=== PATIENT | male | born 1980 | race Two or more races ===

== ENCOUNTER 2020-09-01 03:42 | Inpatient (IN) | payer OTHER ==
[2020-09-01 04:07] VITALS: BMI 22.1
[2020-09-01] MEDS ORDERED: ACETAMINOPHEN 325 MG TABLET (FP) PO PRN ×2 (05:47)
[2020-09-01] MEDS ORDERED: IBUPROFEN 400 MG TABLET (FP) PO PRN (05:47)
[2020-09-01] MEDS ORDERED: MAGNESIUM CITRATE 300 ML BOTTLE PO PRN (05:47)
[2020-09-01] MEDS ORDERED: METHOCARBAMOL 500 MG TABLET PO PRN (05:47)
[2020-09-01] MEDS ORDERED: BISMUTH SUBSALICYLATE 524 MG/30 ML PO PRN (05:47)
[2020-09-01] MEDS ORDERED: MAGNESIUM HYDROX 2400MG/30ML ORAL SUSPENSION 30 ML CUP PO PRN (05:47)
[2020-09-01] MEDS ORDERED: ONDANSETRON *ODT* 4 MG TABLET SL PRN (05:47)
[2020-09-01] MEDS ORDERED: MAG HYDROX/AL HYDROX/SIMETH 30 ML UNIT-DOSE CUP PO PRN (05:47)
[2020-09-01] MEDS ORDERED: MENTHOL/PHENOL 1 EACH UD MM PRN (05:47)
[2020-09-01] MEDS ORDERED: diazePAM 5 MG TABLET PO PRN (05:51)
[2020-09-01] MEDS: diazePAM 5 MG TABLET PO SCH ×2 (06:58→10:34)
[2020-09-01] MEDS ORDERED: LORazepam 1 MG TABLET PO PRN (10:39)
[2020-09-01] MEDS: PRENATAL VITAMINS W/ FOLIC ACID TABLET (FP) PO SCH (10:58)
[2020-09-01] MEDS: LORazepam 2 MG TABLET PO SCH ×3 (10:58→22:30)
[2020-09-01] MEDS: PANTOPRAZOLE 20 MG TABLET PO SCH (17:58)
[2020-09-01] MEDS ORDERED: THIAMINE HCL 100 MG TABLET (FP) PO SCH (22:00)
[2020-09-01] MEDS ORDERED: MELATONIN 5 MG TABLETS PO SCH (22:00)
[2020-09-02] MEDS ORDERED: diazePAM 5 MG TABLET PO SCH (06:00)
[2020-09-02] MEDS: LORazepam 2 MG TABLET PO SCH ×2 (06:04→10:23)
[2020-09-02 09:26] VITALS: BP 101/53; PULSE 108; TEMP 96.1
[2020-09-02 10:06] LABS: HEMOGLOBIN 15.5 GM/dL (11.7-16.9); MCH 30.8 pg (25.7-33.7); MCHC 32.9 g/dl (32.0-35.9); MEAN CELL VOLUME 93.6 fl (80-96); MEAN PLT VOLUME 8.9 fl (7.5-11.1); PLATELET COUNT 189 10^3/uL (134-434); RBC 5.02 M/mm3 (4.00-5.60); RDW 14.5 % (11.9-15.9); WHITE BLOOD COUNT 3.4 K/mm3 (4.0-10.0)
[2020-09-02 10:12] LABS: ALBUMIN 3.9 g/dl (3.4-5.0); BLOOD UREA NITROGEN 9.6 mg/dL (7-18); CALCIUM 9.3 mg/dL (8.5-10.1)
[2020-09-02 10:14] LABS: CREATININE 0.9 mg/dL (0.55-1.3)
[2020-09-02 10:17] LABS: BILIRUBIN,TOTAL 1.2 mg/dL (0.2-1); TOT PROT 7.4 g/dl (6.4-8.2)
[2020-09-02] MEDS: PRENATAL VITAMINS W/ FOLIC ACID TABLET (FP) PO SCH (10:22)
[2020-09-02] MEDS: PANTOPRAZOLE 20 MG TABLET PO SCH (10:23)
[2020-09-02 18:47] LABS: HIV INTERPRETATION NEGATIVE (NEGATIVE)
[2020-09-03] MEDS ORDERED: LORazepam 1 MG TABLET PO SCH (05:00)
[2020-09-03] MEDS ORDERED: diazePAM 5 MG TABLET PO SCH (06:00)
[2020-09-04] MEDS ORDERED: LORazepam 0.5 MG TABLET PO PRN
[2020-09-04] MEDS ORDERED: LORazepam 0.5 MG TABLET PO SCH (05:00)
[2020-09-04] MEDS ORDERED: diazePAM 5 MG TABLET PO ONE (06:00)
[2020-09-05] MEDS ORDERED: LORazepam 0.5 MG TABLET PO ONE (05:00)
== END 2020-09-02 11:40 | disposition left against medical advice (07) | DRG 770 ==
LOC: YASAS 03:42 → Y3N 05:57
PROVIDERS: ADMIT Allergy & Immunology; ATTEND Allergy & Immunology
PROC: HZ2ZZZZ Detoxification Services for Substance Abuse Treatment (ICD-10-PCS; principal; 2020-09-01)
DX: F10.230 Alcohol dependence with withdrawal, uncomplicated (principal); K21.9 Gastro-esophageal reflux disease without esophagitis; R74.8 Abnormal levels of other serum enzymes; Z87.891 Personal history of nicotine dependence; Z91.011 Allergy to milk products
CPT/HCPCS: 36415; 80053; 85027; 86780; 87389; C9803; U0003; U0005